=== PATIENT | female | born 1970 | race Caucasian/White ===

== ENCOUNTER → 2016-08-29 | Day surgery (SDC) | payer BC ==
[~2016-08-29] MED LIST: Lactated Ringers 1,000 ML IV SCH; Lidocaine 4% Top Soln 5 ML LTA Syringe ONE; Lidocaine 4% Top Soln 5 ML LTA Syringe TOP ONE; Meperidine PF 50 MG/ML Syringe IV ONE; Meperidine PF 50 MG/ML Syringe ONE; Midazolam 1 MG/ML 2 ML SDV IV ONE; Midazolam 1 MG/ML 2 ML SDV ONE
[2016-08-29 12:14] VITALS: BP 116/69
--- NOTE | 2016-08-30 07:46 | OR ---
DATE OF OPERATION: 08/29/2016 PREOPERATIVE DIAGNOSIS: LEFT UPPER QUADRANT PAIN. POSTOPERATIVE DIAGNOSIS: SLIDING HIATAL HERNIA WITH GASTROESOPHAGEAL REFLUX DISEASE ALONG WITH GASTRITIS. SURGEON: Heriberto De MD PROCEDURE: UPPER GI ENDOSCOPY AND BIOPSIES. ANESTHESIA: Cetacaine spray and IV sedation, 5 mg of Versed, and 50 of Demerol. INDICATIONS: The patient has been having upper abdominal pain and discomfort. The patient was referred for gallbladder disease, but the patient's pain is atypical. She is complaining of more pain in the left upper quadrant within her rib cage, so it was decided to do an upper GI endoscopy on the patient. DESCRIPTION OF PROCEDURE: After the patient's oropharyngeal mucosa was anesthetized with help of Cetacaine spray, the patient was made to swallow the gastroscope down. The patient's esophagus was normal. The EG junction was close to 35 cm level. There was a sliding hiatal hernia with free reflux. Then, the patient's body of the stomach does show evidence of hemorrhagic gastritis. Biopsies from here were taken. Multiple photographs were also taken. Antrum, pyloric channel, 1st and 2nd part of duodenum were examined. Antrum also showed evidence of gastritis but there were no ulcers present. Gastroscope was retroverted and fundus was examined, it was also free of any tumors, ulcer, or any other pathology. After multiple photographs were taken, gastroscope was withdrawn. The patient tolerated the procedure well and left the operating room in satisfactory condition. TAMMY/MARLINE /[id number]
== END ==
LOC: CC.SDS 10:10
PROVIDERS: ATTEND Surgery
DX: K31.89 Other diseases of stomach and duodenum (principal); K44.9 Diaphragmatic hernia without obstruction or gangrene; J45.909 Unspecified asthma, uncomplicated; K21.9 Gastro-esophageal reflux disease without esophagitis; E04.1 Nontoxic single thyroid nodule; G62.9 Polyneuropathy, unspecified; Z88.1 Allergy status to other antibiotic agents; Z79.899 Other long term (current) drug therapy; Z90.710 Acquired absence of both cervix and uterus; Z98.890 Other specified postprocedural states; F17.210 Nicotine dependence, cigarettes, uncomplicated; Z72.0 Tobacco use
CPT/HCPCS: 43239; A9270; J2175; J2250; J7120

== ENCOUNTER → 2018-08-30 | Day surgery (SDC) | payer OTHER ==
[~2018-08-30] MED LIST changes: +Glycopyrrolate 0.2 MG/ML SDV IVPUSH ONE; -Lactated Ringers 1,000 ML IV SCH; -Lidocaine 4% Top Soln 5 ML LTA Syringe ONE; -Lidocaine 4% Top Soln 5 ML LTA Syringe TOP ONE; -Meperidine PF 50 MG/ML Syringe IV ONE; -Meperidine PF 50 MG/ML Syringe ONE; -Midazolam 1 MG/ML 2 ML SDV IV ONE; -Midazolam 1 MG/ML 2 ML SDV ONE; +Neostigmine Methylsulfate 10 MG/10 ML MDV IV ONE; +Ondansetron 4 MG/2 ML SDV IV ONE; +Propofol 200 MG/20 ML SDV IV ONE; +Rocuronium 50 MG/5 ML Vial IV ONE; +Sodium Chloride 0.9% 10 ML Syringe FLUSH PRN; +Succinylcholine 200 MG/10 ML MDV IV ONE; +ceFAZolin 1 GM Vial IVPUSH ONE; +fentaNYL 100 MCG/2 ML SDV IV ONE
[2018-08-30] MEDS: Lactated Ringers 1,000 ML IV SCH ×3 (09:51→21:23)
--- NOTE | 2018-08-30 13:02 | OR ---
DATE OF OPERATION: 08/30/2018 PREOPERATIVE DIAGNOSIS: BILIARY COLIC WITH 5% EJECTION FRACTION OF THE GALLBLADDER. POSTOPERATIVE DIAGNOSIS: BILIARY COLIC WITH 5% EJECTION FRACTION OF THE GALLBLADDER. SURGEON: Christiano Dumont MD PROCEDURE: LAPAROSCOPIC CHOLECYSTECTOMY. ANESTHESIA: General. ESTIMATED BLOOD LOSS: Minimum. SPECIMEN: Gallbladder. FINDINGS: She had a normal-appearing gallbladder and some periumbilical adhesions from her prior hysterectomy operation. INDICATIONS: This 48-year-old female has some right upper quadrant abdominal pain and postprandial nausea. She has a HIDA scan that shows an ejection fraction of 5%, consistent with chronic cholecystitis. DESCRIPTION OF PROCEDURE: After adequate preparation, an alternate access port site was used in the right upper quadrant. A Veress needle was introduced in the abdomen, insufflated, 5 mm trocar was then placed and then a camera. The visual examination of the abdomen was normal except for some adhesions around the umbilical area from a prior incision. Three other trocars were placed under direct vision. The gallbladder was elevated and the cystic triangle structures dissected free. These were triply clipped and divided. The gallbladder was taken off the liver bed using blunt, sharp, and Bovie dissection. Hemostasis was on the liver bed was controlled by cautery. The right upper quadrant was irrigated with saline and suctioned clear and the gallbladder brought out by placing it in a sterile retrieval bag and bringing it out the epigastric trocar site. The minimal omental adhesions around the umbilical area were then taken down to free up the abdomen. She does have some omental adhesions down into the pelvis. I did not attempt to take these adhesions in the pelvis down. They did not appear to be menacing or obstructing in any way. The abdomen was desufflated, trocars removed, and the patient taken to recovery room. HEATHER/MARLINE /[id number]
[2018-08-30] MEDS: Acetaminophen/oxyCODONE 325-5 MG Tab PO PRN ×2 (15:32→23:14)
[2018-08-31] MEDS: Acetaminophen/oxyCODONE 325-5 MG Tab PO PRN (07:45)
--- NOTE | 2018-08-31 08:37 | PCM.SN ---
- Free Text/Narrative Note: Stable POD#1. Pain controlled. PO adequate. Wounds clean and dry. Can discharge today. No restrictions on diet or activity. PRN with clinic as needed. Percocet #20 given for pain.
[2018-08-31 09:51] VITALS: BP 108/56
== END | disposition home or self-care (01) ==
LOC: CC.SDS 09:23
PROVIDERS: ATTEND Surgery
DX: K81.9 Cholecystitis, unspecified (principal); K66.0 Peritoneal adhesions (postprocedural) (postinfection); K21.9 Gastro-esophageal reflux disease without esophagitis; J45.909 Unspecified asthma, uncomplicated; Z88.1 Allergy status to other antibiotic agents
CPT/HCPCS: A9270-GY; J0330; J0690; J2270; J2405; J2704; J2710; J3010; J3490; J7120

== ENCOUNTER 2019-07-23 16:08 | Inpatient (IN) | payer OTHER ==
[2019-07-23] MEDS ORDERED: Sodium Chloride 0.9% 10 ML Syringe FLUSH PRN (16:41)
[2019-07-23 17:23] LABS: CHLORIDE,CL 104 mEq/L (98-106); SODIUM,NA 142 mEq/L (136-145)
[2019-07-23] MEDS: methylPREDNISolone Sodium Succinate 125 MG/2 ML SDV IVPUSH SCH (18:24)
[2019-07-23] MEDS: cefTRIAXone 1 GM Vial IVPUSH SCH (18:26)
[2019-07-23] MEDS: Azithromycin 500 MG in Sodium Chloride 0.9% 250 ML IV SCH (18:32)
[2019-07-23] MEDS: Pantoprazole 40 MG Tab.CR PO SCH (20:19)
[2019-07-23] MEDS: Enoxaparin 40 MG/0.4 ML Syringe SUBCUT SCH (20:19)
[2019-07-23] MEDS: Formoterol/Mometasone 200-5 MCG 8.8 GM Inhaler IH SCH (20:19)
[2019-07-23] MEDS: busPIRone 5 MG Tab PO SCH (20:20)
[2019-07-23] MEDS: Sertraline 25 MG Tab PO SCH (20:21)
[2019-07-23] MEDS: Albuterol 0.083% 2.5 MG/3 ML Neb Soln NEB PRN (20:27)
[2019-07-24] MEDS: methylPREDNISolone Sodium Succinate 125 MG/2 ML SDV IVPUSH SCH ×2 (05:33→17:32)
[2019-07-24] MEDS: Formoterol/Mometasone 200-5 MCG 8.8 GM Inhaler IH SCH ×2 (07:36→20:06)
[2019-07-24] MEDS: Pantoprazole 40 MG Tab.CR PO SCH ×2 (07:36→20:06)
[2019-07-24] MEDS: Albuterol 0.083% 2.5 MG/3 ML Neb Soln NEB PRN (07:42)
--- NOTE | 2019-07-24 08:55 | PCM.PN ---
- General Info Date of Service: 07/24/19 Admission Dx/Problem (Free Text): Pneumonia Functional Status: Reports: Pain Controlled, Tolerating Diet. Denies: Ambulating - Review of Systems General: Reports: Weakness, Fatigue, Malaise. Denies: Fever HEENT: Reports: Sore Throat, Rhinitis. Denies: Ear Pain Pulmonary: Reports: Shortness of Breath, Cough, Wheezing Cardiovascular: Denies: Chest Pain, Edema, Lightheadedness Gastrointestinal: Denies: Abdominal Pain, Nausea, Vomiting Genitourinary: Reports: No Symptoms Musculoskeletal: Reports: No Symptoms Skin: Reports: No Symptoms Neurological: Reports: No Symptoms - Patient Data Vitals - Most Recent: Last Vital Signs Temp 98.3 F 07/24/19 07:09 Pulse 74 07/24/19 07:09 Resp 16 07/24/19 07:09 BP 114/70 07/24/19 07:09 Pulse Ox 98 07/24/19 07:09 Weight - Most Recent: 161 lb 11.2 oz Lab Results Last 24 Hours: Laboratory Results - last 24 hr 07/23/19 07/23/19 Range/Units 17:10 17:10 WBC 6.8 (5.0-10.0) 10^3/uL RBC 4.84 (4.00-5.50) 10^6/uL Hgb 14.4 (12.0-16.0) g/dL Hct 43.7 (37.0-47.0) % MCV 90.3 (82.0-94.0) fL MCH 29.8 (27.0-32.0) pg MCHC 33.0 (33.0-38.0) g/dL RDW Coeff of Meet 12.7 (11.0-15.0) % Plt Count 239 (150-400) 10^3/uL Neut % (Auto) 50.0 (35-85) % Lymph % (Auto) 37.3 (10-55) % [place] % (Auto) 7.0 (0-16) % Eos % (Auto) 5.6 H (0-5) % Baso % (Auto) 0.1 (0-3) % Neut # (Auto) 3.40 (1.80-7.00) 10^3/uL Lymph # (Auto) 2.54 (1.00-4.80) 10^3/uL [place] # (Auto) 0.48 (0.00-0.80) 10^3/uL Eos # (Auto) 0.38 (0.00-0.45) 10^3/uL Baso # (Auto) 0.01 10^3/uL Sodium 142 (136-145) mEq/L Potassium 4.0 (3.5-5.0) mEq/L Chloride 104 (98-106) mEq/L Carbon Dioxide 29 (21-32) mmol/L BUN 11 (7-18) mg/dL Creatinine 0.9 (0.6-1.0) mg/dL Est Cr Clr Drug Dosing 57.68 mL/min Estimated GFR (MDRD) > 60 (>=60) mL/min Glucose 81 (75-99) mg/dL Calcium 9.3 (8.4-10.1) mg/dL C-Reactive Protein < 0.2 L (0.2-0.8) mg/dL Riki Results Last 24 Hours: Microbiology 07/23/19 17:10 Influenza Type A Antigen Screen - Final Nasopharyngeal Swab NEGATIVE INFLUENZA A VIRUS AG REFERENCE RANGE: NEGATIVE Influenza Type B Antigen Screen - Final NEGATIVE INFLUENZA B VIRUS AG REFERENCE RANGE: NEGATIVE Med Orders - Current: Current Medications Albuterol (Proventil Neb Soln) 2.5 mg NEB Q2H PRN PRN Reason: Shortness Of Breath/wheezing Last Admin: 07/24/19 07:42 Dose: 2.5 mg Buspirone HCl (Buspar) 15 mg PO BEDTIME [facility] Last Admin: 07/23/19 20:20 Dose: 15 mg Ceftriaxone Sodium (Rocephin) 1 gm IVPUSH DAILY@1700 [facility] Last Admin: 07/23/19 18:26 Dose: 1 gm Enoxaparin Sodium (Lovenox) 40 mg SUBCUT BEDTIME [facility] Last Admin: 07/23/19 20:19 Dose: 40 mg Azithromycin 500 mg/ Sodium (Chloride) 250 mls @ 250 mls/hr IV Q24H [facility] Last Admin: 07/23/19 18:32 Dose: 250 mls/hr Methylprednisolone Sodium Succinate (Solu-Medrol) 62.5 mg IVPUSH Q12H [facility] Last Admin: 07/24/19 05:33 Dose: 62.5 mg Mometasone Furoate/Formoterol Fumar (Dulera 200-5 Mcg) 2 puff IH BID [facility] Last Admin: 07/24/19 07:36 Dose: 1 dose Pantoprazole Sodium (Protonix) 40 mg PO BID [facility] Last Admin: 07/24/19 07:36 Dose: 40 mg Sertraline HCl (Zoloft) 50 mg PO BEDTIME [facility] Last Admin: 07/23/19 20:21 Dose: 50 mg Sodium Chloride (Saline Flush) 10 ml FLUSH ASDIRECTED PRN PRN Reason: Keep Vein Open - Exam General: Alert, Oriented HEENT: Mucous Membr. Moist/[place] Neck: Supple Lungs: Decreased Breath Sounds, Wheezing Cardiovascular: Regular Rate, Regular Rhythm GI/Abdominal Exam: Normal Bowel Sounds, Soft, Non-Tender Extremities: Normal Inspection, No Pedal Edema Skin: Warm, Dry Neurological: No New Focal Deficit Sepsis Event Note - Evaluation Sepsis Screening Result: No Definite Risk - Focused Exam Vital Signs: Vital Signs Temp Pulse Resp BP Pulse Ox 07/24/19 07:09 98.3 F 74 16 114/70 98 07/24/19 04:00 97.8 F 60 16 103/62 98 07/23/19 23:25 61 16 94/52 L 98 Date Exam was Performed: 07/24/19 Time Exam was Performed: 08:50 - Problem List & Annotations (1) Asthma exacerbation SNOMED Code(s): 152609757 Code(s): J45.901 - UNSPECIFIED ASTHMA WITH (ACUTE) EXACERBATION Status: Acute Priority: High Current Visit: Yes Qualifiers: Asthma severity: moderate Asthma persistence: persistent Qualified Code(s ): J45.41 - Moderate persistent asthma with (acute) exacerbation (2) Bronchitis SNOMED Code(s): 60060717 Code(s): J40 - BRONCHITIS, NOT SPECIFIED ACUTE OR CHRONIC Status: Acute Priority: High Current Visit: Yes - Problem List Review Problem List Initiated/Reviewed/Updated: Yes - Assessment Assessment:: Bronchitis Asthma Exacerbation - Plan Plan:: Patient still feeling chest tightness, short of breath with exertion. Better at rest. Cough is tight, nonproductive mostly, occasionally able to cough up small amount of phlegm. Sputum collected today. Lung sounds note expiratory wheezing throughout. Labs on admit normal. WBC 6.8, CRP negative. Chest xray negative for infiltrates. Will continue with IV antibiotics, steroids and nebs. Possible discharge home tomorrow.
[2019-07-24] MEDS: cefTRIAXone 1 GM Vial IVPUSH SCH (17:32)
[2019-07-24] MEDS: Azithromycin 500 MG in Sodium Chloride 0.9% 250 ML IV SCH (17:32)
[2019-07-24] MEDS: busPIRone 5 MG Tab PO SCH (20:06)
[2019-07-24] MEDS: Sertraline 25 MG Tab PO SCH (20:06)
[2019-07-24] MEDS: Enoxaparin 40 MG/0.4 ML Syringe SUBCUT SCH (20:06)
[2019-07-25] MEDS: methylPREDNISolone Sodium Succinate 125 MG/2 ML SDV IVPUSH SCH (06:10)
[2019-07-25 07:17] LABS: CHLORIDE,CL 105 mEq/L (98-106); SODIUM,NA 140 mEq/L (136-145)
[2019-07-25] MEDS: Formoterol/Mometasone 200-5 MCG 8.8 GM Inhaler IH SCH (08:14)
[2019-07-25] MEDS: Pantoprazole 40 MG Tab.CR PO SCH (08:17)
[2019-07-25 08:18] VITALS: BP 114/74; PULSE 64
--- NOTE | 2019-07-25 17:20 | PCM.DCSUM1 ---
Discharge Summary - Hospital Course Free Text/Narrative:: Caitie is a 49 year old female who presented to clinic to see Dr. Belle with constant cough, wheezing and malaise. Had been ill for approximately one month. Treated prior to this without resolution of her symptoms. Complained of dyspnea, wheezing, chills, fever and nasal congestion. Had not been tolerating activity well. Oxygen sats in clinic were 98%. Afebrile. Lung sounds noted to have inspiratory and expiratory wheezing. Rhonchi heard diffusely throughout. Admitted for further work up with concerns for pneumonia. Diagnosis: Stroke: No Modified [place] Scale: No Symptoms at All Modified [place] Scale Score: 0 - Discharge Data Discharge Date: 07/25/19 Discharge Disposition: Home, Self-Care 01 Condition: Good - Referral to Home Health Primary Care Physician: Arjun Belle MD - Discharge Diagnosis/Problem(s) (1) Asthma exacerbation SNOMED Code(s): 979535166 ICD Code: J45.901 - UNSPECIFIED ASTHMA WITH (ACUTE) EXACERBATION Status: Acute Priority: High Qualifiers: Asthma severity: moderate Asthma persistence: persistent Qualified Code(s ): J45.41 - Moderate persistent asthma with (acute) exacerbation (2) Bronchitis SNOMED Code(s): 77576655 ICD Code: J40 - BRONCHITIS, NOT SPECIFIED ACUTE OR CHRONIC Status: Acute Priority: High - Patient Summary/Data Complications: none Consults: Consultations 07/23/19 16:41 Respiratory Care Assess and Treatment [CONS] Routine Hospital Course: Patient doing well. Ambulating in halls without shortness of breath. Lung sounds now clear. Oxygen sats have remained good. Labs have remained normal through stay, WBC today slightly elevated at 11.3, likely the change from the steroids. CRP negative. Chest xray is clear. Will discharge home on prednisone, ceftin and ongoing nebs. - Patient Instructions Diet: Usual Diet as Tolerated Activity: As Tolerated - Discharge Plan *PRESCRIPTION DRUG MONITORING PROGRAM REVIEWED*: No *COPY OF PRESCRIPTION DRUG MONITORING REPORT IN PATIENT DAMARIS: No Prescriptions/Med Rec: Albuterol [Proventil Neb Soln] 2.5 mg NEB QID PRN #1 box PRN Reason: Shortness Of Breath/wheezing Cefuroxime Axetil [Ceftin] 250 mg PO BID #20 tablet Home Medications: Home Meds Rizatriptan Benzoate [Maxalt] 10 mg PO ASDIRECTED PRN 07/31/14 [History] Budesonide/Formoterol [Symbicort 160-4.5 MCG] 2 puff INH BID 10/06/14 [History] Ibuprofen 400 mg PO Q6H PRN 10/06/14 [History] Guaifenesin/Pseudoephedrne HCl [Mucinex D ER 1,200-120 mg Tab] 1 tab PO Q12H PRN 08/29/16 [History] Omeprazole 20 mg PO BID PRN 08/29/16 [History] Psyllium Husk [Metamucil] 3 tab PO DAILY PRN 08/29/16 [History] Cyanocobalamin (Vitamin B-12) [Vitamin B-12] 1,000 mcg PO DAILY 08/25/18 [ History] Multivitamin [Multi-Day Vitamins] 1 tab PO DAILY 08/25/18 [History] Phenylephrine/Dm/Acetaminop/Gg [Tylenol Cold-Flu Severe [place]] 1 tab PO DAILY PRN 08/25/18 [History] Sertraline HCl 50 mg PO BEDTIME 08/25/18 [History] busPIRone [Buspar] 15 mg PO BEDTIME 07/23/19 [History] estradioL [Estrace 0.01% Vaginal Crm] 1 applic VAG DAILY 07/23/19 [History] Albuterol [Proventil Neb Soln] 2.5 mg NEB QID PRN #1 box 07/25/19 [Rx] Cefuroxime Axetil [Ceftin] 250 mg PO BID #20 tablet 07/25/19 [Rx] Patient Handouts: Community-Acquired Pneumonia, Adult Referrals: Arjun Belle MD [Primary Care Provider] - (Follow up in one week with Dr. Belle ) - Discharge Summary/Plan Comment DC Time >30 min.: No - General Info Date of Service: 07/25/19 Admission Dx/Problem (Free Text: Pneumonia Functional Status: Reports: Pain Controlled, Tolerating Diet, Ambulating - Review of Systems General: Reports: Fatigue. Denies: Fever, Weakness, Malaise HEENT: Reports: Headaches, Rhinitis. Denies: Ear Pain Pulmonary: Denies: Shortness of Breath, Cough Cardiovascular: Reports: Chest Pain. Denies: Edema, Lightheadedness Gastrointestinal: Denies: Abdominal Pain, Nausea, Vomiting Genitourinary: Reports: No Symptoms Musculoskeletal: Reports: No Symptoms Skin: Reports: No Symptoms Neurological: Reports: Headache - Patient Data Vitals - Most Recent: Last Vital Signs Temp 98.3 F 07/25/19 08:00 Pulse 64 07/25/19 08:00 Resp 20 07/25/19 08:00 BP 114/74 07/25/19 08:00 Pulse Ox 98 07/25/19 08:00 Weight - Most Recent: 161 lb 11.2 oz Lab Results - Last 24 hrs: Laboratory Results - last 24 hr 07/25/19 07/25/19 Range/Units 06:55 06:55 WBC 11.3 H (5.0-10.0) 10^3/uL RBC 4.67 (4.00-5.50) 10^6/uL Hgb 13.7 (12.0-16.0) g/dL Hct 42.9 (37.0-47.0) % MCV 91.9 (82.0-94.0) fL MCH 29.3 (27.0-32.0) pg MCHC 31.9 L (33.0-38.0) g/dL RDW Coeff of Meet 13.2 (11.0-15.0) % Plt Count 268 (150-400) 10^3/uL Neut % (Auto) 74.4 (35-85) % Lymph % (Auto) 20.9 (10-55) % Lane % (Auto) 4.6 (0-16) % Eos % (Auto) 0 (0-5) % Baso % (Auto) 0.1 (0-3) % Neut # (Auto) 8.44 H (1.80-7.00) 10^3/uL Lymph # (Auto) 2.37 (1.00-4.80) 10^3/uL Lane # (Auto) 0.52 (0.00-0.80) 10^3/uL Eos # (Auto) 0.00 (0.00-0.45) 10^3/uL Baso # (Auto) 0.01 10^3/uL Sodium 140 (136-145) mEq/L Potassium 4.1 (3.5-5.0) mEq/L Chloride 105 (98-106) mEq/L Carbon Dioxide 28 (21-32) mmol/L BUN 13 (7-18) mg/dL Creatinine 0.8 (0.6-1.0) mg/dL Est Cr Clr Drug Dosing 64.89 mL/min Estimated GFR (MDRD) > 60 (>=60) mL/min Glucose 109 H D (75-99) mg/dL Calcium 8.8 (8.4-10.1) mg/dL C-Reactive Protein < 0.2 L (0.2-0.8) mg/dL GAYATRI Results - Last 24 hrs: Microbiology 07/24/19 10:57 Gram Stain - Final Sputum - Expectorated Sputum Culture - Preliminary Med Orders - Current: Current Medications Discontinued Medications Albuterol (Proventil Neb Soln) 2.5 mg NEB Q2H PRN PRN Reason: Shortness Of Breath/wheezing Last Admin: 07/24/19 07:42 Dose: 2.5 mg Buspirone HCl (Buspar) 15 mg PO BEDTIME [facility] Last Admin: 07/24/19 20:06 Dose: 15 mg Ceftriaxone Sodium (Rocephin) 1 gm IVPUSH DAILY@1700 [facility] Last Admin: 07/24/19 17:32 Dose: 1 gm Enoxaparin Sodium (Lovenox) 40 mg SUBCUT BEDTIME [facility] Last Admin: 07/24/19 20:06 Dose: 40 mg Azithromycin 500 mg/ Sodium (Chloride) 250 mls @ 250 mls/hr IV Q24H [facility] Last Admin: 07/24/19 17:32 Dose: 250 mls/hr Methylprednisolone Sodium Succinate (Solu-Medrol) 62.5 mg IVPUSH Q12H [facility] Last Admin: 07/25/19 06:10 Dose: 62.5 mg Mometasone Furoate/Formoterol Fumar (Dulera 200-5 Mcg) 2 puff IH BID [facility] Last Admin: 07/25/19 08:14 Dose: 2 dose Pantoprazole Sodium (Protonix) 40 mg PO BID [facility] Last Admin: 07/25/19 08:17 Dose: 40 mg Sertraline HCl (Zoloft) 50 mg PO BEDTIME [facility] Last Admin: 07/24/19 20:06 Dose: 50 mg Sodium Chloride (Saline Flush) 10 ml FLUSH ASDIRECTED PRN PRN Reason: Keep Vein Open - Exam General: Reports: Alert, Oriented HEENT: Reports: Mucous Membr. Moist/[place] Neck: Reports: Supple Lungs: Reports: Clear to Auscultation, Normal Respiratory Effort Cardiovascular: Reports: Regular Rate, Regular Rhythm GI/Abdominal Exam: Normal Bowel Sounds, Soft, Non-Tender Extremities: Normal Inspection, No Pedal Edema Skin: Reports: Warm, Dry Neurological: Reports: No New Focal Deficit
== END 2019-07-25 09:50 | disposition home or self-care (01) | DRG 194 ==
LOC: UNDOADMIN 16:08 → CC.MS 16:08
PROVIDERS: ADMIT Family Medicine; ATTEND Family Medicine
DX: J18.9 Pneumonia, unspecified organism (principal); J45.41 Moderate persistent asthma with (acute) exacerbation; F41.9 Anxiety disorder, unspecified; F32.9 Major depressive disorder, single episode, unspecified; E78.5 Hyperlipidemia, unspecified; G62.9 Polyneuropathy, unspecified; Z90.710 Acquired absence of both cervix and uterus; Z79.899 Other long term (current) drug therapy
CPT/HCPCS: 36415; 71046; 80048; 85025; 86140; 87070; 87205; 87804; 94640; A9270-GY; J0456; J0696; J1650; J2930; J7050; J7613-GY